=== PATIENT | female | born 1955 | race Caucasian/White ===

== ENCOUNTER → 2017-01-22 | Outpatient (CLI) | payer BC | END | disposition home or self-care (01) | LOC: RAD.S 11:46 → PTH.S 15:15 → RAD.S 15:30 | DX: R31.9 Hematuria, unspecified (principal); M54.5 Low back pain; N13.2 Hydronephrosis with renal and ureteral calculous obstruction; K57.30 Diverticulosis of large intestine without perforation or abscess without bleeding; M47.894 Other spondylosis, thoracic region; M47.896 Other spondylosis, lumbar region ==